=== PATIENT | female | born 1975 | race Caucasian/White ===

== ENCOUNTER 2017-04-14 11:03 | Day surgery (SDC) | payer OTHER ==
[~2017-04-14] VITALS: Ht 162.6 cm; Wt 89.4 kg
[2017-04-14] VITALS (14 sets, daily range): BP systolic 104–125; BP diastolic 45–65; PULSE 56–82; RESP 11–21; Ht 162.6 cm; Wt 89.4 kg
[~2017-04-14 11:03] MED LIST: CEFAZOLIN 1 GM/50 ML (PMX) 50 ML IVPB SCH; SOD CHLORIDE 0.9% 1,000 ML IV SCH
[2017-04-14] MEDS ORDERED: LORA-186 PO (11:34)
[2017-04-14] MEDS ORDERED: BUPIVACAINE 0.25% (MPF) 30 ML INJ ONE (14:31)
[2017-04-14] MEDS ORDERED: MIDAZOLAM 1 MG/ML 2 ML INJ ONE (14:44)
[2017-04-14] MEDS ORDERED: PROPOFOL 20 ML ONE (14:44)
[2017-04-14] MEDS ORDERED: FENTAnyl 50 MCG/ML VIAL ONE (14:44)
[2017-04-14] MEDS ORDERED: LIDOCAINE 2% (SDV) 5 ML INJ ONE (14:44)
[2017-04-14] MEDS ORDERED: PHENYLephrine (100 MCG/ML) 5ML SYG ONE (14:55)
[2017-04-14] MEDS ORDERED: ONDANSETRON 4 MG INJ ONE (14:57)
[2017-04-14] MEDS ORDERED: DEXAMETHASONE 4 MG/ML 1 ML INJ ONE (14:57)
[2017-04-14] MEDS ORDERED: FAMOTIDINE 20 MG INJ ONE (15:01)
[2017-04-14] MEDS ORDERED: CEFAZOLIN 1 GM INJ ONE (15:02)
--- NOTE | 2017-04-14 15:18 | OPR ---
Date/Time of Note Date/Time of Note DATE: 04/14/17 TIME: 15:14 Operative Report Procedure Date: Apr 14, 2017 Preoperative Diagnosis right back tumor Postoperative Diagnosis same Operation Performed 1.radical root resection of right back tumor 10 cm x 9 cm and incision of 14 cm 2. localized adjacent tissue transfer with the use of skin flaps 42 sq cm defect 3. therapeutic injection of subcutaneous marcaine cpt code [id number] Surgeon: Phil LEMOS Anesthesia Type: general Estimated Blood Loss: minimal Specimens right back tumor Grafts/Implants: none Complications: no Indications This is a 41-year-old female with a right back tumor she required surgical excision. Risks alternatives benefits and percent were discussed the patient. Patient's best understanding consents to the operation. Procedure Description Patient is taken to the OR and prepped and draped in usual sterile fashion. Surgical timeout was performed. IV antibiotics are given. Transverse incision is made over the large right back to him with a 10 blade. Dissection cautery was carried onto the deeper tissues. The tumor is resected en bloc with cautery. There is good hemostasis. This left a large tissue defect. Localized adjacent tissue transfer with these of skin flaps was performed. Multilayer closure with interrupted 3-0 Vicryl. Skin was closed with skin eddie. Therapeutic case Marcaine was injected throughout the incision site. Dry dressings were applied. Phil LEMOS Apr 14, 2017 15:18
[2017-04-14] MEDS ORDERED: OXYCODONE/ACETAMINOPHEN (5/325) TAB PO PRN ×2 (16:00)
[2017-04-14] MEDS ORDERED: FENTAnyl 50 MCG/ML VIAL IV PRN (16:00)
[2017-04-14] MEDS ORDERED: MEPERIDINE 25 MG INJ IV PRN (16:00)
[2017-04-14] MEDS ORDERED: KETOROLAC 30 MG INJ IV PRN (16:00)
[2017-04-14] MEDS ORDERED: DIPHENHYDRAMINE 50 MG INJ IV PRN (16:00)
[2017-04-14] MEDS ORDERED: HYDROmorphONE (0.2 MG/ML) 10ML SYG IV PRN ×3 (16:00)
[2017-04-14] MEDS ORDERED: ONDANSETRON 4 MG INJ IV PRN (16:00)
[2017-04-14] MEDS ORDERED: PROCHLORPERAZINE 10 MG INJ IV PRN (16:00)
== END 2017-04-14 17:11 | disposition home or self-care (01) ==
LOC: SDS 11:03
PROVIDERS: ATTEND Surgery
DX: R22.2 Localized swelling, mass and lump, trunk (principal); D17.1 Benign lipomatous neoplasm of skin and subcutaneous tissue of trunk
CPT/HCPCS: 14301; 84703; 88307; J0690; J1100; J1170; J2250; J2370; J2405; J3010; Z7512; Z7610